=== PATIENT | male | born 1980 | race African-American/Black ===

== ENCOUNTER 2018-05-02 22:06 | Inpatient (IN) | payer MEDICAID, OTHER ==
[~2018-05-02] VITALS: Ht 180.3 cm; Wt 79.4 kg
[2018-05-02] MEDS ORDERED: KETOROLAC 30MG/ML VIAL IV STA (22:50)
[2018-05-02] MEDS ORDERED: ONDANSETRON HCL 4MG/2ML INJ IV STA (22:50)
[2018-05-02] MEDS ORDERED: SODIUM CHLORIDE 0.9% 1,000 ML IV ONE (22:50)
[2018-05-02 23:59] LABS: HEMATOCRIT. 38.5 % (42.0-52.0); HEMOGLOBIN. 11.9 g/dL (14.0-18.0); MEAN CORPUSCULAR HEMOGLOBIN 24.1 pg (28.0-32.0); MEAN CORPUSCULAR VOLUME 77.7 fL (80.0-94.0); MEAN PLATELET VOLUME 9.7 fl (7.4-10.4); PLATELET 158 x1000/uL (130-400); RED BLOOD CELL COUNT 4.95 mill/uL (4.7-6.1); RED CELL DISTRIBUTION WIDTH 14.2 % (11.6-14.6)
[2018-05-03 00:07] LABS: CHLORIDE 93 mEq/L (98-107)
[2018-05-03 00:12] LABS: ETHANOL BLOOD < 10 mg/dL
[2018-05-03 00:36] LABS: CLARITY URINE CLEAR (CLEAR); COLOR URINE YELLOW (YELLOW); KETONES URINE 4+ (NEGATIVE); LEUKOCYTE ESTERASE URINE NEGATIVE (NEGATIVE); NITRITE URINE NEGATIVE (NEGATIVE); OCCULT BLOOD URINE 1+ (NEGATIVE); PROTEIN URINE 3+ (NEGATIVE); SPECIFIC GRAVITY URINE 1.019 (1.005-1.030)
[2018-05-03 00:52] LABS: *AMPHETAMINES SCREEN URINE NEGATIVE (NEGATIVE); *BARBITURATES SCREEN URINE NEGATIVE (NEGATIVE); *BENZODIAZEPINES SCREEN URINE NEGATIVE (NEGATIVE); *COCAINE SCREEN URINE NEGATIVE (NEGATIVE); METHADONE URINE SCREEN NEGATIVE (NEGATIVE); OPIATES URINE SCREEN NEGATIVE (NEGATIVE)
[2018-05-03 00:53] LABS: CANNABINOID URINE SCREEN NEGATIVE (NEGATIVE); PHENCYCLIDINE URINE SCREEN NEGATIVE (NEGATIVE)
[2018-05-03 00:55] LABS: PLATELET ESTIMATE NORMAL
[2018-05-03] MEDS ORDERED: MORPHINE SULFATE 4 MG/ML CPJ (NOT FOR IM USE) IV STA (01:40)
[2018-05-03] MEDS ORDERED: ONDANSETRON HCL 4MG/2ML INJ IV STA (01:40)
[2018-05-03] MEDS ORDERED: SODIUM CHLORIDE 0.9% 1,000 ML IV ONE (01:40)
[2018-05-03] MEDS ORDERED: AMLODIPINE 5MG TABLET PO ONE (02:15)
[2018-05-03 02:44] LABS: CREATINE KINASE 202 IU/L (39-308)
[2018-05-03] MEDS ORDERED: HYDRALAZINE 20MG/ML VIAL IV ONE (05:15)
[2018-05-03] MEDS ORDERED: MORPHINE SULFATE 4 MG/ML CPJ (NOT FOR IM USE) IV PRN ×2 (08:30→12:15)
[2018-05-03] MEDS ORDERED: ACETAMINOPHEN 650MG SUPP PR PRN (08:30)
[2018-05-03] MEDS ORDERED: IPRATROPIUM/ALBUTEROL 0.5-3(2.5)MG/3ML NEB INH PRN (08:30)
[2018-05-03] MEDS ORDERED: ONDANSETRON HCL 4MG/2ML INJ IV PRN (08:30)
[2018-05-03] MEDS: HYDRALAZINE 20MG/ML VIAL IV PRN ×2 (08:47→14:46)
[2018-05-03 09:05] LABS: BG BASE EXCESS -11.7 mmol/L (-2.0-2.0); BG CARBOXYHEMOGLOBIN 0.6 % (0.5-1.5); BG DEOXYHEMOGLOBIN 1.7 % (0.0-5.0); BG FRACTION INSPIRED OXYGEN 21; BG HCO3 ACT 12.1 mmol/L (22.0-26.0); BG METHEMOGLOBIN 0.3 % (0.0-1.5); BG OXYGEN SATURATION 98.3 % (92.0-98.5); BG OXYHEMOGLOBIN 97.4 % (94.0-97.0); BG PH 7.339 (7.350-7.450); BG PO2 125.9 mmHg (75.0-100.0); BG SAMPLE SITE RIGHT BRACHIAL; BG TOTAL HEMOGLOBIN 12.9 g/dL (12.0-18.0); BG VENT MODE ROOM AIR
[2018-05-03 09:58] LABS: BETA HYDROXYBUTYRATE 7.7 mMol/L (0.0-0.3)
[2018-05-03 11:35] VITALS: BP 193/126
[2018-05-03 12:00] VITALS: BP 193/126
[2018-05-03] MEDS ORDERED: HYDR25TA MT (12:04)
[2018-05-03] MEDS ORDERED: AMLO10TA80 MT (12:04)
[2018-05-03] MEDS ORDERED: LISI-604 MT (12:04)
[2018-05-03] MEDS: AMLODIPINE 10MG TABLET PO SCH (12:27)
[2018-05-03] MEDS: LISINOPRIL 20MG TABLET PO SCH (12:29)
[2018-05-03] MEDS: SODIUM CHLORIDE 0.9% 1,000 ML IV SCH ×2 (12:30→20:35)
[2018-05-03] MEDS: HYDROCHLOROTHIAZIDE 25MG TABLET PO SCH (12:30)
[2018-05-03] MEDS: ENOXAPARIN 40MG/0.4ML SYR SUBCUT SCH (12:32)
[2018-05-03] MEDS: ENALAPRIL 1.25MG/ML VIAL 1ML IV SCH ×2 (12:38→18:08)
[2018-05-03 14:34] VITALS: BP 178/124
[2018-05-03] MEDS ORDERED: LABETALOL HCL 20MG/4ML CARPUJECT IV PRN (15:00)
[2018-05-03 15:30] VITALS: BP 165/113
[2018-05-03] MEDS: HYDROMORPHONE HCL/PF 2MG/ML CPJ IV PRN ×2 (16:28→22:31)
[2018-05-03] MEDS ORDERED: HYDRALAZINE 20MG/ML VIAL IV NR (17:00)
[2018-05-03 17:03] LABS: CREATINE KINASE 261 IU/L (39-308)
[2018-05-03 17:04] LABS: CREATINE KINASE MB FRACTION < 1.0 ng/mL (0.5-3.6)
[2018-05-03] MEDS ORDERED: DEXTROSE 50% WATER 50ML SYRINGE IV PRN (17:30)
[2018-05-03] MEDS: INSULIN LISPRO 100 UNITS/ML SUBCUT SCH ×2 (17:50→20:37)
[2018-05-03 18:00] VITALS: BP 133/94
[2018-05-03] MEDS: BLOOD SUGAR DIAGNOSTIC STRIP TEST SCH ×2 (18:01→23:19)
[2018-05-03 20:00] VITALS: BP 141/97
[2018-05-04] VITALS: BP 125/84
[2018-05-04] MEDS: ENALAPRIL 1.25MG/ML VIAL 1ML IV SCH ×5 (00:02→23:28)
[2018-05-04 01:33] LABS: CREATINE KINASE 181 IU/L (39-308)
[2018-05-04 01:34] LABS: CREATINE KINASE MB FRACTION < 1.0 ng/mL (0.5-3.6)
[2018-05-04 04:00] VITALS: BP 132/87
[2018-05-04] MEDS: HYDROMORPHONE HCL/PF 2MG/ML CPJ IV PRN ×4 (04:31→23:29)
[2018-05-04] MEDS: BLOOD SUGAR DIAGNOSTIC STRIP TEST SCH ×2 (05:15→11:05)
[2018-05-04 06:51] LABS: HEMATOCRIT. 36.8 % (42.0-52.0); HEMOGLOBIN. 11.7 g/dL (14.0-18.0); MEAN CORPUSCULAR HEMOGLOBIN 24.2 pg (28.0-32.0); MEAN CORPUSCULAR VOLUME 76.4 fL (80.0-94.0); MEAN PLATELET VOLUME 10.1 fl (7.4-10.4); PLATELET 135 x1000/uL (130-400); RED BLOOD CELL COUNT 4.82 mill/uL (4.7-6.1); RED CELL DISTRIBUTION WIDTH 14.4 % (11.6-14.6)
[2018-05-04 07:02] LABS: CHLORIDE 101 mEq/L (98-107)
[2018-05-04 07:16] LABS: AMYLASE 108 IU/L (25-115)
[2018-05-04 07:19] LABS: HDL CHOLESTEROL 119 mg/dL (40-59)
[2018-05-04 07:21] LABS: LDL CHOLESTEROL 94 mg/dL (5-100)
[2018-05-04] MEDS: INSULIN LISPRO 100 UNITS/ML SUBCUT SCH ×2 (07:50→11:05)
[2018-05-04 08:00] VITALS: BP 130/94
[2018-05-04] MEDS: AMLODIPINE 10MG TABLET PO SCH (09:40)
[2018-05-04] MEDS: HYDROCHLOROTHIAZIDE 25MG TABLET PO SCH (09:40)
[2018-05-04] MEDS: LISINOPRIL 20MG TABLET PO SCH (09:40)
[2018-05-04] MEDS: ENOXAPARIN 40MG/0.4ML SYR SUBCUT SCH (09:41)
[2018-05-04] MEDS: SODIUM CHLORIDE 0.9% 1,000 ML IV SCH ×2 (09:48→20:57)
[2018-05-04 12:12] VITALS: BP 124/87
[2018-05-04] MEDS ORDERED: POTASSIUM CHLORIDE 20MEQ TABLET SR PO SCH (12:15)
[2018-05-04] MEDS: METOPROLOL TARTRATE 25MG TABLET PO SCH ×2 (12:56→20:31)
[2018-05-04 14:07] LABS: PLATELET ESTIMATE NORMAL
[2018-05-04 16:15] VITALS: BP 127/86
[2018-05-04 20:10] VITALS: BP 124/85
[2018-05-05] VITALS: BP 113/77
[2018-05-05 04:00] VITALS: BP 118/72
[2018-05-05] MEDS: ENALAPRIL 1.25MG/ML VIAL 1ML IV SCH ×3 (05:43→18:16)
[2018-05-05] MEDS: HYDROMORPHONE HCL/PF 2MG/ML CPJ IV PRN ×3 (05:47→18:10)
[2018-05-05 08:00] VITALS: BP 138/97
[2018-05-05] MEDS: METOPROLOL TARTRATE 25MG TABLET PO SCH (09:00)
[2018-05-05] MEDS: LISINOPRIL 20MG TABLET PO SCH (09:00)
[2018-05-05] MEDS: AMLODIPINE 10MG TABLET PO SCH (09:00)
[2018-05-05] MEDS: HYDROCHLOROTHIAZIDE 25MG TABLET PO SCH (09:00)
[2018-05-05] MEDS: ENOXAPARIN 40MG/0.4ML SYR SUBCUT SCH (09:02)
[2018-05-05] MEDS: SODIUM CHLORIDE 0.9% 1,000 ML IV SCH (11:45)
[2018-05-05 12:00] VITALS: BP 148/102
[2018-05-05 16:00] VITALS: BP_SYST 146; BP_DIAS 106; BP_DIAS 108
[2018-05-05] MEDS ORDERED: ACET-2178 MT (18:38)
[2018-05-05] MEDS ORDERED: METO-385 MT (18:38)
[2018-05-05 20:01] VITALS: BP 132/95
== END 2018-05-05 21:15 | disposition home or self-care (01) | DRG 282 ==
LOC: ER 22:06 → 6WST 05-03 01:51 → CANRESERV 05-03 03:35 → ENRESERV 05-03 03:35 → EDBEDREQSVC 05-03 10:41 → ENRESERV 05-03 11:07
PROVIDERS: ADMIT Internal Medicine; ATTEND Internal Medicine
DX: K85.20 Alcohol induced acute pancreatitis without necrosis or infection (principal); E87.8 Other disorders of electrolyte and fluid balance, not elsewhere classified; I42.9 Cardiomyopathy, unspecified; R16.0 Hepatomegaly, not elsewhere classified; K76.0 Fatty (change of) liver, not elsewhere classified; E87.1 Hypo-osmolality and hyponatremia; E87.6 Hypokalemia; I10 Essential (primary) hypertension; K82.8 Other specified diseases of gallbladder; E11.9 Type 2 diabetes mellitus without complications; K83.9 Disease of biliary tract, unspecified; F10.20 Alcohol dependence, uncomplicated; R74.0 Nonspecific elevation of levels of transaminase and lactic acid dehydrogenase [LDH]; Z82.49 Family history of ischemic heart disease and other diseases of the circulatory system; Z79.84 Long term (current) use of oral hypoglycemic drugs
CPT/HCPCS: 36415; 36600; 74176; 74181; 80061; 80305; 82010; 82150; 82375; 82550; 82553; 82805; 82962; 83036; 84443; 84484; 93005; 93306; 93970; 96361; 96374; 96375; 96376; 99285; J0360; J1170; J1650; J1885; J2270; J2405; J3490; J7030